=== PATIENT | male | born 1965 | race American Indian/Alaskan Native ===

== ENCOUNTER 2020-01-14 15:08 | Emergency (ER) | payer SELFPAY ==
--- NOTE | 2020-01-14 16:06 | XRay Report ---
CHEST 2 VIEWS INDICATION / CLINICAL INFORMATION: palpitations, dizziness. COMPARISON: 08/13/11 FINDINGS: SUPPORT DEVICES: None. HEART / MEDIASTINUM: Heart is moderately enlarged but stable. Median sternotomy hardware and left-antoni ed AICD are unchanged. LUNGS / PLEURA: No significant pulmonary or pleural abnormality. No pneumothorax. ADDITIONAL FINDINGS: No significant additional findings. IMPRESSION: 1. Cardiomegaly but no acute pulmonary or pleural findings. No change. Signer Name: Irving Feldman MD Signed: 01/14/2020 4:02 PM Workstation Name: [id number]
[2020-01-14 16:52] LABS: Basophils % (Auto) 0.4 % (0.0-1.8); Hematocrit 43.4 % (35.5-45.6); Hemoglobin 14.1 gm/dl (11.8-15.2); Lymphocytes # (Auto) 1.2 K/mm3 (1.2-5.4); Lymphocytes % (Auto) 31.7 % (13.4-35.0); Mean Corpuscular HGB Conc 33 % (32-34); Mean Corpuscular Volume 92 fl (84-94); Monocytes # (Auto) 0.5 K/mm3 (0.0-0.8); Monocytes % (Auto) 12.4 % (0.0-7.3); Platelet Count 103 K/mm3 (140-440); Red Blood Count 4.71 M/mm3 (3.65-5.03); Red Cell Distribution Width 15.2 % (13.2-15.2)
[2020-01-14 17:04] LABS: INR 2.28 (0.87-1.13)
[2020-01-14 17:05] LABS: Partial Thromboplastin Time 40.9 Sec. (24.2-36.6)
[2020-01-14 17:13] LABS: Albumin 4.1 g/dL (3.9-5); Calcium 8.7 mg/dL (8.4-10.2)
--- NOTE | 2020-01-14 20:23 | Emergency Department Report ---
ED General Adult HPI - General Chief complaint: Arrhythmia/Palpitations Stated complaint: DIZZYNESS/HEART PALPATIONS PUI?: No Time Seen by Provider: 01/14/20 20:08 Source: patient, EMS ( EMS documentation not available at time of chart dictation ), RN notes reviewed Mode of arrival: Ambulatory Limitations: No Limitations - History of Present Illness Initial comments: The patient is a 54-year-old gentleman. His primary care doctor is Dr. Alana Burns. His past due accounts clerk is Dr. Dilip Morocho at [facility]. His past medical history is complex, including tetralogy of flow, severe tricuspid regurg, AICD for ventricular tachycardia prophylaxis, on permanent Coumadin and amiodarone therapy, previously on Lasix therapy, recently changed to torsemide last week for lower extremity swelling The patient presents to the ER today with a complaint of resolved painless palpitations. He endorses compliance with his medications, denies physical pain, denies headache, neck pain, chest pain, abdominal pain, shortness of breath, hemate mesis, bright red blood per rectum. He does consume caffeine occasionally, and reports being outside in the heat. Earlier on today, he had a few seconds to a few minutes of painless palpitations, and thus presented to the emergency room. He has no complaints at this time, his symptoms are resolved, they do not radiate anywhere, and they do not have exacerbating or relieving factors. He endorses compliance with his medications. He is due for his nocturnal medications, which include Coreg, Coumadin, and spironolactone. -: Sudden Consistency: now resolved Improves with: none Worsens with: none Associated Symptoms: denies other symptoms - Related Data Home Medications Medication Instructions Recorded Confirmed Last Taken Amiodarone HCl [Amiodarone 100 MG 200 mg PO DAILY 01/14/20 01/14/20 01/14/20 05:00 TAB] Furosemide [Furosemide ORAL LIQ] 40 mg PO QDAY 01/14/20 01/14/20 01/14/20 05:00 Spironolactone [Aldactone] 50 mg PO BID 01/14/20 01/14/20 01/14/20 05:00 Warfarin Sodium [Coumadin] 2.5 mg PO 01/14/20 1 Day Ago ~01/13/20 carvediloL [Coreg] 25 mg PO BID 01/14/20 01/14/20 01/14/20 14:00 Allergies Allergy/AdvReac Type Severity Reaction Status Date / Time No Known Allergies Allergy Verified 01/14/20 20:51 ED Review of Systems ROS: Stated complaint: DIZZYNESS/HEART PALPATIONS Other details as noted in HPI Comment: All other systems reviewed and negative Respiratory: denies: shortness of breath Cardiovascular: palpitations. denies: chest pain ED Past Medical Hx - Past Medical History Previous Medical History?: Yes Hx Hypertension: Yes Hx Congestive Heart Failure: Yes Additional medical history: AICD - Surgical History Past Surgical History?: Yes Additional Surgical History: AORTIC VALVE REPLACEMENT - Social History Smoking Status: Never Smoker Substance Use Type: None - Medications Home Medications: Home Medications Medication Instructions Recorded Confirmed Last Taken Type Amiodarone HCl [Amiodarone 100 MG 200 mg PO DAILY 01/14/20 01/14/20 01/14/20 05:00 History TAB] Furosemide [Furosemide ORAL LIQ] 40 mg PO QDAY 01/14/20 01/14/20 01/14/20 05:00 History Spironolactone [Aldactone] 50 mg PO BID 01/14/20 01/14/20 01/14/20 05:00 History Warfarin Sodium [Coumadin] 2.5 mg PO 01/14/20 1 Day Ago History ~01/13/20 carvediloL [Coreg] 25 mg PO BID 01/14/20 01/14/20 01/14/20 14:00 History ED Physical Exam - General Limitations: No Limitations General appearance: alert, anxious, obese - Head Head exam: Present: atraumatic, normocephalic - Eye Eye exam: Present: normal appearance, EOMI. Absent: nystagmus - ENT ENT exam: Present: normal exam, normal orophraynx, mucous membranes moist, normal external ear exam - Neck Neck exam: Present: normal inspection, full ROM. Absent: tenderness, meningismus - Respiratory Respiratory exam: Present: normal lung sounds bilaterally. Absent: respiratory distress, wheezes, rales, rhonchi, stridor - Cardiovascular Cardiovascular Exam: Present: regular rate. Absent: bradycardia, tachycardia, irregular rhythm - GI/Abdominal GI/Abdominal exam: Present: soft. Absent: distended, tenderness, guarding, rebound, rigid, pulsatile mass - Rectal Rectal exam: Present: deferred - Extremities Exam Extremities exam: Present: normal inspection, full ROM, pedal edema (1+ edema noted), other (2+ pulses noted in the bilateral upper and lower extremities. There is no palpable cord. negative Homans sign. Muscular compartments are soft. The pelvis is stable.). Absent: calf tenderness - Back Exam Back exam: Present: normal inspection, full ROM. Absent: tenderness, CVA te nderness (R), CVA tenderness (L), paraspinal tenderness, vertebral tenderness - Neurological Exam Neurological exam: Present: alert, normal gait, other (No facial droop. Tongue midline. Extraocular movements intact bilaterally. Facial sensation intact to light touch in V1, V2, V3 distribution bilaterally. 5 and a 5 strength in 4 extremities. Sensation intact to light touch in 4 extremities.). Absent: motor sensory deficit - Psychiatric Psychiatric exam: Present: normal affect, normal mood - Skin Skin exam: Present: warm, dry, intact, normal color. Absent: rash ED Course Vital Signs 01/14/20 01/14/20 01/14/20 15:17 20:36 21:49 Temperature 98.1 F 97.2 F L Pulse Rate 100 H 101 H 103 H Respiratory 18 18 Rate Blood Pressure 109/76 117/85 Blood Pressure 117/86 [Left] O2 Sat by Pulse 98 99 Oximetry - Reevaluation(s) Reevaluation #1: 01/14/20 20:43 Differential diagnosis, including but not limited to: Palpitations, electrolyte derangement, arrhythmia, medical clearance Assessment and plan: 54-year-old gentleman, who is currently afebrile, with reassuring vital signs, clinically sober, walking with a steady gait, temperature 98.1 F, saturating at 98% on room air, heart rate 100 bpm, respirations 18/min, blood pressure 109/76 mmHg, with painless palpitations, now resolved. Laboratory studies were sent prior to my evaluation, they are fairly unremarkable. He has mild lower extremity edema, but has no crackles, rales, hypoxia, and x-ray of the chest shows clear lungs. He is found to have a [employer] device, and we are attempting to get in touch with the device skein mercerizing machine operator to have a device interrogation. I will contact his primary past due accounts clerk if his device demonstrates a malignant arrhythmia. Reevaluation #2: 01/14/20 23:36 patient observed for hours with no events Rhythm appears to be the same on his equipment monitor phototypesetting. Patient had a prolonged stay in the emergency room secondary to technical diff iculties with achieving/performing his ICD device interrogation. However, his device was successfully interrogated, and as per [employer] Owen Qasim, patient had no arrhythmias or malignant events. As a courtesy, I called up his past due accounts clerk, Dr Yo Lester, on his private cell phone, no answer, left a voicemail for call back. Patient does not appear to have an emergent medical condition at this time, he can be discharged to follow-up with his outpatient primary care doctor or past due accounts clerk. Return precautions are reviewed, patient verbalized understanding. Patient was observed for hours without clinical decompensation or deterioration. As per discussion with the aforementioned [employer] marketing sales representative, it is possible that the patient had occasionally paced beats which may have been perceived as similar to PVCs. ED Medical Decision Making - Lab Data Result diagrams: 01/14/20 16:16 01/14/20 16:16 Print Report Referring Physician: VANESA HOFFMAN Patient Name: BECKY PARKS Date of : 1965 Sex: Male Report Date: 2020-01-14 Report Status: Finalized Findings [place] [id number] XRay Report Signed Patient: BECKY PARKS MR#: [id number] : 1965 Acct:[id number] Age/Sex: 54 / M ADM Date: 01/14/20 Loc: ED Attending Dr: Ordering Physician: ALE HUNG Date of Service: 01/14/20 Procedure(s): XR chest routine 2V Accession Number(s): [id number] cc: ALE HUNG Fluoro Time In Minutes: CHEST 2 VIEWS INDICATION / CLINICAL INFORMATION: palpitations, dizziness. COMPARISON: 08/13/11 FINDINGS: SUPPORT DEVICES: None. HEART / MEDIASTINUM: Heart is moderately enlarged but stable. Median sternotomy hardware and left-sided AICD are unchanged. LUNGS / PLEURA: No significant pulmonary or pleural abnormality. No pneumothorax. ADDITIONAL FINDINGS: No significant additional findings. IMPRESSION: 1. Cardiomegaly but no acute pulmonary or pleural findings. No change. Signer Name: Irving Feldman MD Signed: 01/14/2020 4:02 PM Workstation Name: [id number] Transcribed By: DT Dictated By: Anival Feldman MD Electronically Authenticated By: Anival Feldman MD Signed Date/Time: 01/14/20 1602 DD/ [id number] TD/TT: - EKG Data -: EKG Interpreted by Ct - EKG Data When compared to previous EKG there are: previous EKG unavailable 01/14/20 20:42 The EKG is showing a ventricular paced rate, 100 bpm, with a borderline left axis deviation, prolonged QTC, no endorsement of chest pain, abnormal EKG, not morphologically a STEMI, transmitted to cardiology, Dr. Calloway by Dr Ajit Goldman, who agreed that the EKG is not a STEMI. Furthermore, the patient does not endorse chest pain - Radiology Data Radiology results: report reviewed, image reviewed Print Report Referring Physician: VANESA HOFFMAN Patient Name: BECKY PARKS Date of : 1965 Sex: Male Report Date: 2020-01-14 Report Status: Finalized Findings [facility] [address] [place] [address] XRay Report Signed Patient: BECKY PARKS MR#: [id number] : 1965 Acct:[id number] Age/Sex: 54 / M ADM Date: 01/14/20 Loc: ED Attending Dr: Ordering Physician: ALE HUNG Date of Service: 01/14/20 Procedure(s): XR chest routine 2V Accession Number(s): [id number] cc: ALE HUNG Fluoro Time In Minutes: CHEST 2 VIEWS INDICATION / CLINICAL INFORMATION: palpitations, dizziness. COMPARISON: 08/13/11 FINDINGS: SUPPORT DEVICES: None. HEART / MEDIASTINUM: Heart is moderately enlarged but stable. Median sternotomy hardware and left-sided AICD are unchanged. LUNGS / PLEURA: No significant pulmonary or pleural abnormality. No pneumothorax. ADDITIONAL FINDINGS: No significant additional findings. IMPRESSION: 1. Cardiomegaly but no acute pulmonary or pleural findings. No change. Signer Name: Irving Feldman MD Signed: 01/14/2020 4:02 PM Workstation Name: [id number] Transcribed By: DT Dictated By: Anival Feldman MD Electronically Authenticated By: Anival Feldman MD Signed Date/Time: 01/14/20 1602 DD/ [id number] TD/TT: Critical care attestation.: If time is entered above; I have spent that time in minutes in the direct care of this critically ill patient, excluding procedure time. ED Disposition Clinical Impression: History of palpitations, Anticoagulated, ICD (implantable cardioverter- defibrillator), single, in situ, History of tetralogy of Fallot, History of tricuspid valve disease Disposition: DC- TO HOME OR SELFCARE Is pt being admited?: No Does the pt Need Aspirin: No Condition: Stable Additional Instructions: Please continue current outpatient medications. Avoid consumption of caffeine, energy drinks and stimulants, and minimize strenuous physical activity, as well as exposure to the extreme heat. These follow-up with your outpatient primary care doctor or past due accounts clerk within the next week. Please return to the emergency room right away with new pain, worsening pain, migration of pain, projectile vomiting, change in mental status, confusion, inability to tolerate liquid feeds, new, worsened or different symptoms not present on the initial emergency room evaluation. Referrals: Dilip Lester [Other] - 3-5 Days
[2020-01-14] MEDS ORDERED: carvediloL 25 MG TAB PO STA (21:22)
[2020-01-14] MEDS ORDERED: SPIRONOLACTONE 50 MG TAB PO ONE (21:22)
[2020-01-14] MEDS: WARFARIN 2.5 MG TAB PO ONE ×2 (21:49→22:21)
[2020-01-14] MEDS ORDERED: AMIODARONE 200 MG TAB PO SCH (22:00)
[2020-01-14 22:19] VITALS: BP 117/85
== END 2020-01-14 22:50 | disposition home or self-care (01) ==
LOC: ED 15:08
DX: Q21.3 Tetralogy of Fallot (principal); I07.8 Other rheumatic tricuspid valve diseases; R00.2 Palpitations; I11.0 Hypertensive heart disease with heart failure; I50.9 Heart failure, unspecified; Z79.01 Long term (current) use of anticoagulants; Z98.890 Other specified postprocedural states; Z79.899 Other long term (current) drug therapy
CPT/HCPCS: 36415; 71046; 80053; 82550; 83735; 83880; 84443; 84484; 85025; 85610; 85730; 93005